=== PATIENT | male | born 1990 | race Caucasian/White ===

== ENCOUNTER 2024-07-19 10:00 | Emergency (ER) | payer BC ==
[~2024-07-19] VITALS: Ht 175.3 cm; Wt 107.8 kg
[2024-07-19 10:09] VITALS: TEMP 97.8
[2024-07-19] MEDS: cloNIDine 0.1 mg tablet PO ONE (13:39)
[2024-07-19 14:47] VITALS: BP 148/101; PULSE 78; RESP 14; O2SAT 98
[2024-07-19] MEDS ORDERED: LISI20TA28 PO (14:50)
== END 2024-07-19 15:01 | disposition home or self-care (01) ==
LOC: ER 10:00
DX: I10 Essential (primary) hypertension (principal)
CPT/HCPCS: 99283